=== PATIENT | female | born 1985 | race African-American/Black ===

== ENCOUNTER 2016-10-17 10:23 | Emergency (ER) | payer MEDICAID ==
--- NOTE | 2016-10-17 10:46 | ER Document Report ---
ED Medical Screen (RME) - General Chief Complaint: Chest Wall Pain Stated Complaint: CHEST PAIN Mode of Arrival: Ambulatory Information source: Patient Notes: 31 y/o F presents to ED c/o left upper chest and left upper back pain. Reports pain is worse with movement. Denies fever or recent illness or sob. I have greeted and performed a rapid initial assessment of this patient. A comprehensive ED assessment and evaluation of the patient, analysis of test results and completion of the medical decision making process will be conducted by additional ED providers. - Related Data Allergies/Adverse Reactions: No Known Allergies Allergy (Verified 10/17/16 10:41) Past Medical History Past Surgical History: Reports: Hx Abdominal Surgery - umbilical hernia repair - Immunizations Hx Diphtheria, Pertussis, Tetanus Vaccination: Yes Physical Exam - Vital signs Vitals: Temp Pulse Resp BP Pulse Ox 98.2 F 76 18 110/69 100 10/17/16 10:38 10/17/16 10:38 10/17/16 10:38 10/17/16 10:38 10/17/16 10:38 - General General appearance: Appears well, Alert In distress: None - Respiratory Respiratory status: No respiratory distress Chest status: Tender - Tenderness with palpation to left upper chest wall and left upper back., Pain on movement Breath sounds: Normal - CTAB - Cardiovascular Rhythm: Regular Heart sounds: Normal auscultation Pulses: Normal: Radial Normal capillary refill: Yes Course - Vital Signs Vital signs: Temp Pulse Resp BP Pulse Ox 98.2 F 76 18 110/69 100 10/17/16 10:38 10/17/16 10:38 10/17/16 10:38 10/17/16 10:38 10/17/16 10:38
[2016-10-17] MEDS ORDERED: TRAMADOL HCL 50 MG TABLET PO ONE (11:59)
[2016-10-17] MEDS ORDERED: NAPROXEN 250 MG TABLET PO ONE (11:59)
--- NOTE | 2016-10-17 12:00 | ER Document Report ---
ED General - General Mode of Arrival: Ambulatory Information source: Patient TRAVEL OUTSIDE OF THE [place] IN LAST 30 DAYS: No - HPI Onset: This morning Onset/Duration: Sudden Quality of pain: Achy Severity: None Associated symptoms: None Exacerbated by: Other - left upper extremity movement Similar symptoms previously: No <MALATHI PACHECO - Last Filed: 10/17/16 12:07> <CAIN HENDERSON - Last Filed: 10/17/16 18:36> - General Chief Complaint: Chest Pain Stated Complaint: CHEST PAIN Notes: Patient is a 31 year old female that presents to the emergency department today with complaints of reproducible chest pain. Patient states the pain seem to radiate to her back. Patient states her pain is reproducible and is exacerbated with movement of her left upper extremity. (MALATHI PACHECO) - Related Data Allergies/Adverse Reactions: No Known Allergies Allergy (Verified 10/17/16 10:41) Past Medical History - General Information source: Patient - Social History Smoking Status: Current Every Day Smoker Cigarette use (# per day): Yes Chew tobacco use (# tins/day): No Frequency of alcohol use: None Drug Abuse: None Lives with: Family Family History: Reviewed & Not Pertinent Patient has suicidal ideation: No Patient has homicidal ideation: No - Medical History Medical History: Negative Renal/ Medical History: Denies: Hx Peritoneal Dialysis Past Surgical History: Reports: Hx Abdominal Surgery - umbilical hernia repair - Immunizations Hx Diphtheria, Pertussis, Tetanus Vaccination: Yes <MALATHI PACHECO - Last Filed: 10/17/16 12:07> Review of Systems - Review of Systems Constitutional: No symptoms reported EENT: No symptoms reported Cardiovascular: No symptoms reported Respiratory: See HPI, Other - chest wall pain Gastrointestinal: No symptoms reported Genitourinary: No symptoms reported Female Genitourinary: No symptoms reported Musculoskeletal: See HPI, Back pain Skin: No symptoms reported Hematologic/Lymphatic: No symptoms reported Neurological/Psychological: No symptoms reported -: Yes All other systems reviewed and negative <MALATHI PACHECO - Last Filed: 10/17/16 12:07> Physical Exam - Vital signs Interpretation: Normal - General General appearance: Appears well, Alert In distress: None - HEENT Head: Normocephalic, Atraumatic Eyes: Normal Conjunctiva: Normal Extraocular movements intact: Yes - Respiratory Respiratory status: No respiratory distress Chest status: Nontender Breath sounds: Normal Chest palpation: Tender - left anterior chest wall tenderness with palpation, reproducible chest pain. - Cardiovascular Rhythm: Regular Heart sounds: Normal auscultation Murmur: No - Abdominal Inspection: Normal Distension: No distension - Back Back: Other - tenderness with palpation over left medial scapula - Extremities General upper extremity: Normal inspection, Normal ROM. No: Edema General lower extremity: Normal inspection, Normal ROM. No: Edema - Neurological Neuro grossly intact: Yes Cognition: Normal Orientation: AAOx4 Speech: Normal - Psychological Associated symptoms: Normal affect, Normal mood - Skin Skin Temperature: Warm Skin Moisture: Dry Skin Color: Normal <MALATHI PACHECO - Last Filed: 10/17/16 12:07> Course <MALATHI PACHECO - Last Filed: 10/17/16 12:07> - Diagnostic Test Radiology reviewed: Reports reviewed - EKG Interpretation by Co EKG shows normal: Sinus rhythm Rate: Normal Rhythm: NSR <CAIN HENDERSON - Last Filed: 10/17/16 18:36> - Re-evaluation Re-evalutation: 10/17/16 Patient with reproducible chest wall and back pain. EKG and chest x-ray within normal limits. 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 Patient will be given naproxen and Ultram. Follow-up with PMD. Return if any worsening or concerning symptoms. (CAIN HENDERSON) - Vital Signs Vital signs: Temp Pulse Resp BP Pulse Ox 98.0 F 75 16 110/70 100 10/17/16 12:40 10/17/16 12:40 10/17/16 12:40 10/17/16 12:40 10/17/16 12:40 (MALATHI PACHECO) (CAIN HENDERSON) Discharge <MALATHI PACHECO - Last Filed: 10/17/16 12:07> <CAIN HENDERSON - Last Filed: 10/17/16 18:36> - Discharge Clinical Impression: Chest wall pain Upper back strain Qualifiers: Encounter type: initial encounter Qualified Code(s): S29.012A - Strain of muscle and tendon of back wall of thorax, initial encounter Condition: Stable Disposition: HOME, SELF-CARE Instructions: Chest Wall Pain ([facility]), Upper Back Strain ([facility]) Prescriptions: Tramadol HCl [Ultram 50 mg Tablet] 50 mg PO QHS #20 tablet Naproxen [Naprosyn 250 mg Tablet] 250 mg PO DAILY PRN #20 tablet PRN Reason: Referrals: DAXA REGAN MD [Primary Care Provider] - Follow up as needed Scribe Attestation: 10/17/16 18:36 I personally performed the services described in the documentation, reviewed and edited the documentation which was dictated to the scribe in my presence, and it accurately records my words and actions. (CAIN HENDERSON) Scribe Documentation - Scribe Written by Nancy:: Nancy Baer, 10/17/16 1211 acting as scribe for :: Evgeny <MALATHI PACHECO - Last Filed: 10/17/16 12:07>
[2016-10-17 12:41] VITALS: BP 110/70
--- NOTE | 2016-10-17 16:35 | EKG REPORT ---
SEVERITY:- BORDERLINE ECG - SINUS RHYTHM PROBABLE LEFT ATRIAL ABNORMALITY : Confirmed by: Shakira Ferreira MD 17-Oct-2016 16:35:04
== END 2016-10-17 12:41 | disposition home or self-care (01) ==
LOC: ER 10:23
DX: S29.012A Strain of muscle and tendon of back wall of thorax, initial encounter (principal); X58.XXXA Exposure to other specified factors, initial encounter; R07.9 Chest pain, unspecified; F17.210 Nicotine dependence, cigarettes, uncomplicated
CPT/HCPCS: 93005; 99285; 71020; 93010; J3490